=== PATIENT | female | born 1995 | race Two or more races ===

== ENCOUNTER 2017-09-28 02:59 | Emergency (ER) | payer BC ==
[~2017-09-28] VITALS: Ht 162.6 cm; Wt 50.8 kg
[~2017-09-28 02:59] MED LIST: APAP/HYDROCODON1 T13 PO; CIPRO XR1000 MG PO; LAC PO
[2017-09-28 03:05] VITALS: BP 114/69; Ht 162.6 cm; Wt 50.8 kg
== END 2017-09-28 04:46 | disposition home or self-care (01) ==
LOC: ED 02:59
DX: S83.92XA Sprain of unspecified site of left knee, initial encounter (principal); X50.1XXA Overexertion from prolonged static or awkward postures, initial encounter; Y93.89 Activity, other specified; Y92.89 Other specified places as the place of occurrence of the external cause; Y99.8 Other external cause status
CPT/HCPCS: Q0092